=== PATIENT | male | born 1985 | race Caucasian/White ===

== ENCOUNTER 2023-12-22 10:48 | Emergency (ER) | payer OTHER, SELFPAY ==
[2023-12-22 10:52] VITALS: BP 136/81
[2023-12-22] MEDS: TORADOL 60 MG IM (11:48)
--- NOTE | 2023-12-22 11:51 | ED.GENMED ---
History of Present Illness
General
Chief Complaint: Back Pain
Source: patient
Exam Limitations: none
Time Seen by Provider: 12/22/23 11:34
Nursing documentation reviewed up to this point in time: agreed with
History of Present Illness
History of Present Illness:
38-year-old male presents with back pain onset yesterday did some yoga made it a bit worse with work up today sharp in his left greater than right lower back does radiate to the buttock no fever or chills, no trouble urinating HTN urgent care
referred here previously he was seen in urgent care with low back pain in his hometown in [place] treated with a steroid injection medication improved within 12 hours,
Past History
Past History
ED Past Medical History: Other (Low back pain)
Social History
Tobacco: Non-smoker
Alcohol: None
Drug: None
Living: with family
Employment: Employed
Review of Systems
Review of Systems
All Other Systems: Not applicable
Constitutional: Denies fever or fatigue
EENT: Reports no symptoms
Respiratory: Reports no symptoms
Cardiac: Reports no symptoms
ABD/GI: Reports no symptoms
: Reports no symptoms; Denies difficulty voiding
Musculoskeletal: Reports back pain
Neurological: Reports no symptoms
Endocrine: Reports no symptoms
Phy Exam
Physical Exam
Physical Exam:
Physical Exam
General: 38 male looks uncomfortable but nontoxic
Neck: No jaundice
Heart: Rate
Lungs: no acute respiratory distress.
Neuro: alert and oriented. Painful straight leg raise right and left around 35 to 40 degrees
Skin: no rash
Psychiatric: well kept. interactive and cooperative
Extremities: no edema.
Course
Orders/Labs/Results
Orders:
Orders
12/22/23 11:38
Ketorolac [Toradol] 60 mg IM NOW STA
Oxycodone/Acetaminophen [Percocet 5/325] 1 tablet PO NOW STA
12/22/23 11:39
Lumbar Spine, 2 or 3 View [CR Lumbar Spine 2 Or 3 Views] Urgent
Comment:
Reason For Exam: pain
Vital Signs
Initial and Last Documented VS:
Initial Vital Signs
Temp Pulse Resp BP Pulse Ox
98.8 F 82 18 136/81 97
12/22/23 10:52 12/22/23 10:52 12/22/23 10:52 12/22/23 10:52 12/22/23 10:52
Last Documented Vital Signs
Temp Pulse Resp BP Pulse Ox
98.8 F 82 18 136/81 97
12/22/23 10:52 12/22/23 10:52 12/22/23 10:52 12/22/23 10:52 12/22/23 10:52
MDM/Problems Addressed
Differential Diagnosis Includes:
Lumbar radiculopathy sciatica, strain strain, doubt epidural abscess cauda equina or discitis by history and physical
MDM/Problems Addressed:
Back pain
Chronic conditions affecting care:
Prior back pain
*Critical Care Note
Total Time (30-74mins, 75-104mins- exclusive of procedures): Not Applicable
Update Note
Update Note:
Symptoms appear radicular, will treat symptomatically check screening x-ray,
Update patient appears improved, he did not want to take any Percocet
ED Attending Note
-
Portions of this chart may have been created with voice recognition software.� Occasional wrong word or��sound alike� substitutions may have occurred due to the inherent limitations of voice recognition software.
Discharge Plan
Departure
Patient Disposition: Home (Routine Discharge)
Date of Disposition: 12/22/23
Time of Disposition: 13:29
Patient with high blood pressure during this ER visit?: No
Condition: Good
Discharge Problem:
Back pain
Instructions: Low Back Pain (DC)
Prescriptions:
New
ketorolac 10 mg tablet
10 mg PO Q8H PRN (Reason: Pain) Qty: 10 0RF
metaxalone 800 mg tablet
800 mg PO TID PRN (Reason: muscle pain) Qty: 14 0RF
Referrals:
NONE,* [Family Provider] -
Chu Cummings MD [Active] - Next open appointment
Interventions
Interventions:
*Risk Screen - Suicide Last Done: 12/22/23 10:52
*General Assessment Last Done: 12/22/23 10:52
*Neglect/Abuse Screening Last Done: 12/22/23 10:52
ED- Fall Risk Assessment Last Done: 12/22/23 11:54
*ED COVID-19 Vaccine History Last Done: 12/22/23 11:54
ED-Musculoskeletal Assessment Last Done: 12/22/23 11:54
Discharge Date and Time
Print Language: LITHUANIAN
== END 2023-12-22 13:58 | disposition home or self-care (01) ==
LOC: EMR 10:48
PROVIDERS: EMERGENCY PHYSICIAN Emergency Medicine
DX: M54.50 Low back pain, unspecified (principal)
CPT/HCPCS: 96372; 99284; 72100